=== PATIENT | female | born 1980 | race Caucasian/White ===

== ENCOUNTER 2016-06-15 18:03 | Inpatient (IN) | payer MEDICARE, MEDICAID ==
[~2016-06-15] VITALS: Ht 160 cm; Wt 50.9 kg
--- NOTE | ~2016-06-15 | ER ---
PATIENT'S NAME: ALHAJI CHAPMAN [facility] AGE: 35 Y [address] ROOM: [address] [place], [place] [address] LOCATION: GPCU ADMIT DATE: 06/15/2016 ER/Outpatient Report DISCHARGE DATE: FAMILY PHYSICIAN: PHYSICIAN, UNKNOWN ATTENDING PHYSICIAN: SHARON XIE A HISTORY OF PRESENT ILLNESS: This is a 35-year-old female, who presents today with chief complaint of seizure-like activity and periods of hypoxia. 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 According to her, she has had seizures since she was little when she "" of an asthma attack. The patient currently says that she hurts allover because her body is spasming. She says that some days she feels like she cannot breathe because when she has these seizures, she has paralysis of her diaphragm as well. She was seen in [place] for the same thing and he had put her on medications, which she said was working very well for her. These include very high doses of Dilaudid and lots of benzos as well. She was recently transferred to [facility] for suicidal gesture. She was EPC'd on a psychiatric basis only. I clarified this with Dr. Vega and the appropriate paper goods machine operator who had done it and this is only for psychiatric care and she had the right to refuse medical care. About an hour ago, according to this note, she began having these seizure-like activities that would last 10-15 seconds where she would desaturate as well to like 70% to 80%. She states that she would come out of it. She was conscious all the time and she would say that she is in pain and she needs her normal Dilaudid and all her benzos. She was seen by the hospitalist at [facility] 3 days ago for evaluation of her previous medical problems. Please see their note for further recommendations. She has chronic pain because of these seizing episodes. No other complaints at this time. She is very upset that they took her medications from her. She said that her doctor in [place] had settled and she said she was fine on these. EMS gave her Ativan 2 mg IV en route. PAST MEDICAL HISTORY: Asthma, history of pancreatitis, history of Adriano-Page syndrome. PAST SURGICAL HISTORY: Aortic coarctation repair at the age of 2, cholecystectomy, bilateral foot surgery. SOCIAL HISTORY: She is single and disabled. She does smoke marijuana as well. She also reports alcohol use. ALLERGIES: DEPAKOTE AND AMITIZA. PATIENT'S NAME: ALHAJI CHAPMAN [facility] AGE: 35 Y [address] ROOM: [facility] [place] [place] [address] LOCATION: GPCU ADMIT DATE: 06/15/2016 ER/Outpatient Report DISCHARGE DATE: FAMILY PHYSICIAN: PHYSICIAN, UNKNOWN ATTENDING PHYSICIAN: SHARON XIE CURRENT MEDICATIONS: Please see the medical record and the list. ROS: Reviewed by me are negative with the exception of those discussed in the HPI. PHYSICAL EXAMINATION: GENERAL: The patient is alert and oriented. She is able to speak to me when I can focus her. She does have some mild clonus episodes of her upper extremities and lower extremities. These do not result in any respiratory paralysis though. Every so often, the patient does have these episodes where she had gas and then she will desat to 86% to 87%. The lowest I saw was 76%. These lasts 10 seconds maximum and then her O2 comes right back up. She has one episode of vomiting as well for which she was suctioned and she was actually able to bring the vomiting bag to her mouth. She is otherwise alert and oriented x4, pretty cooperative, maintains good eye contact and pupils are equal and reactive to light. HEART: Her heart rate is at this time mildly tachycardic, about 102 beats per minute. LUNGS: Her lung sounds are clear. She has no labored breathing, tachypnea, or accessory muscle use. ABDOMEN: She has been thin, but soft, nontender, nondistended. No guarding or rebound. EXTREMITIES: She has no mottling or signs of trauma and otherwise appears well and nontoxic. NEURO: She has these myoclonus episodes where she is fully conscious and these episodes of gasping where she is sort of arches her back and desats to 70% to 80%. ER COURSE: An IV was established. The patient was given Ativan 2 mg by the EMS. We went over all of her records and discussed this with Dr. Vega, who had sent her over from [facility]. The story was that the nurses there do not feel they can handle this patient as she is having these repeated seizure-like episodes where she will desat and they cannot handle her medically here. Dr. Vega states though that she is EPC'd for psychiatric reasons and she does have the right to refuse medical treatment. The teleneurologist also saw this patient here. He was pretty convinced that this was pseudoseizures as the patient managed to have a full conversation with him without having any of these episodes and she was also managed to lay in CT scanner and was fully cooperative with that tests for the whole time, but then will start having these episodes when she is sort of left alone or told upsetting things, but he cannot rule out real seizures, so would recommend an ECG. However, we do not have EEG capability in [facility] over the weekend. So, I had arranged for her PATIENT'S NAME: ALHAJI CHAPMAN [facility] AGE: 35 Y [address] ROOM: [place] [address] [facility] AD[facility] DATE: 06/15/2016 ER/Outpatient Report DISCHARGE DATE: FAMILY PHYSICIAN: PHYSICIAN, UNKNOWN ATTENDING PHYSICIAN: SHARON XIE to be transported to [facility] where they do have EEG capability. The patient is refusing though and if she is not VISION SPECIALIST medically, she does have a right to refuse and she would need to consent for an EEG for them to actually do it. She is refusing. I discussed this with Dr. Garcia and he stated the patient is not EPC'd, she is not suicidal at this time and she needs workup for these sort of seizure-like activities that I also believe are pseudoseizures and would not show anything on EEG. The patient admitted in stable condition. I think a lot of it is due to her medications being taken away from her and she may need to have her medications reconciled. Admitted in guarded condition to [facility] under Dr. Garcia. IMPRESSION: Seizure-like activity. MD RIZWAN GARSIA/rea /[id number] d: 06/16/16 0425 t: 07/11/16 1821, OUTPATIENT REPORT
--- NOTE | ~2016-06-15 | HP ---
PATIENT'S NAME: ALHAJI CHAPMAN [facility] AGE: 35 Y [address] ROOM: [id number] [place], [place] [address] LOCATION: GPCU ADMIT DATE: 06/15/2016 History & Physical DISCHARGE DATE: FAMILY PHYSICIAN: PHYSICIAN, UNKNOWN ATTENDING PHYSICIAN: SHARON XIE DATE OF SERVICE: ATTENDING PHYSICIAN: Francisco Javier Segundo MD PRIMARY CARE PHYSICIAN: None. CHIEF COMPLAINT: Seizures. HISTORY OF PRESENT ILLNESS: This is a 35-year-old female, who first had a suicide attempt about a week ago. The patient was then brought from the [facility] to [facility] for further psychiatric management. After discussion with the Deputy Burgos, it is noted that the patient was not EPC'd but has a court committal at this point of time. She is awaiting a board hearing for her committal at this point of time. The patient was undergoing treatment for her suicide attempt under Dr. Vega's management. The patient was noted to have seizures, that were described as myoclonic seizures and also grand mal seizure today. She was then brought to the ER for further evaluation, management, and medical clearance. The patient was evaluated in the ER. The patient stated to the ER physician that she has a history of Adriano-Page syndrome and has myoclonic seizures from hypoxia for the past several years. She is on seizure medications including Keppra and benzodiazepines. The patient's seizure medications were being held because she was extremely drowsy at [facility] per reviewed records. The patient also has a history of chronic back pain and is on chronic opioid use. The patient was evaluated in the ER. A stat Neurology consult was obtained at that point of time. The neurologist recommended that the patient be transferred to [place] for an EEG, which cannot be accomplished at [facility] over the weekend. The patient refused treatment then to the ER physician and refused her transfer to [place]. The ER physician then contacted the hospitalist team for admission. She had already talked with Deputy Burgos and also Domonique Vicky at that point of time. Dr. Vega was contacted since the patient needed to go back to [facility], but she was refused admission at [facility] for no PATIENT'S NAME: ALHAJI CHAPMAN [facility] AGE: 35 Y [address] ROOM: [place] [address] LOCATION: GPCU ADMIT DATE: 06/15/2016 History & Physical DISCHARGE DATE: FAMILY PHYSICIAN: PHYSICIAN, UNKNOWN ATTENDING PHYSICIAN: SHARON XIE staff. Hospitalist team was then asked to admit the patient at [facility]. This is despite our inability to do an EEG currently. At the time of my examination on PCU, the patient is still having myoclonic seizures. She also had a grand mal seizure when I examined her on PCU. She was not postictal. During these episodes, the patient would hold her breath, and it seems like her saturations dropped to less than 90 on a couple of different occasions. She has received about 6 mg of total Ativan at this point of time. I have also consulted Neurology and discussed the case with them. The patient denies any headache. She complains of general body aches. She denies any abdominal pain, diarrhea, or constipation. Denies any chest pain or shortness of breath. Denies any other complaints at this point of time. REVIEW OF SYSTEMS: A 10-point review of systems was done and was otherwise negative except as mentioned above. HOME MEDICATIONS: Per MAR. PAST MEDICAL HISTORY: 1. Adriano-Page syndrome. 2. Chronic myoclonic movements. 3. History of asthma. 4. PTSD. 5. History of suicide attempt. 6. Depression. 7. Chronic opioid use. 8. Chronic back pain. 9. Conversion disorder per reviewed records with a history of pseudoseizures. 10. History of aortic coarctation. PAST SURGICAL HISTORY: 1. Cholecystectomy. 2. Bilateral foot surgery. 3. Aortic coarctation repair at age of 2 years per reviewed records. FAMILY HISTORY: Father has diabetes. Mother of heroin use at age 29. SOCIAL HISTORY: Reported history of illicit drug use and marijuana smoking per reviewed PATIENT'S NAME: ALHAJI CHAPMAN [facility] AGE: 35 Y [address] ROOM: [address] [place] [id number] LOCATION: GPCU ADMIT DATE: 06/15/2016 History & Physical DISCHARGE DATE: FAMILY PHYSICIAN: PHYSICIAN, UNKNOWN ATTENDING PHYSICIAN: KHALID,HERRERA A records. Occasional alcohol use per reviewed records. ALLERGIES: 1. DEPAKOTE AND ANIKA-DUR, UNKNOWN REACTION. 2. AMITIZA. PHYSICAL EXAMINATION: VITAL SIGNS: Temperature 98.0, pulse 84 and regular, respirations 16, blood pressure 111/58, saturation 99% on 2 L nasal cannula oxygen. GENERAL: The patient was initially having a seizure episode and was confused. She was, however, not confused postictally. She was alert and oriented x3 subsequently, in no acute distress. HEENT: Head: Normocephalic, atraumatic. Pupils are equal, round, reactive to light. Extraocular muscles are intact. Nares clear. Throat clear. Mucous membranes moist. NECK: Supple. No nuchal rigidity. HEART: Regular rate and rhythm. LUNGS: Clear to auscultation bilaterally. ABDOMEN: Soft, nontender, nondistended. Bowel sounds are present. EXTREMITIES: No clubbing, cyanosis, or edema. VASCULAR: Pulses 2+ distally bilaterally. NEUROLOGIC: The patient is alert and oriented x3. Follows all commands. Moves all extremities. Strength 5/5 bilateral upper and lower extremities. Cranial nerves 2 through 12 grossly intact. Sensation intact bilateral upper and lower extremities. No neurologic deficits noted. Deep tendon reflexes 2+/4. She had 2 episodes of seizures during my examination and received Ativan but currently does not show any twitches or seizure. DIAGNOSTIC DATA: ABG was done and showed a pH of 7.37, pCO2 of 41, pO2 of 138, bicarb 23.7, saturation 99% on 3 L nasal cannula oxygen. CBC showed a white count of 6.2, hemoglobin 14.9, hematocrit 43.1, platelets 252. CMP showed sodium 144, potassium 3.7, chloride 110, bicarb 22, BUN 11, creatinine 1.0, glucose 82, calcium 9.3. Total protein 8.2, albumin 3.9, AST 23, ALT 31, alkaline phosphatase 91, total bilirubin 0.3, magnesium 2.1, anion gap 15.7, globulin 4.1, GFR more than 60. Serum test less than 1.1, negative. Prolactin level 11.1. EEG is pending at this point of time, and it has been recommended by the neurologist, CT head was done and showed no acute intracranial abnormality per the ER physician. Official read is pending at this point of time. Chest x-ray showed no acute cardiopulmonary abnormality. ASSESSMENT AND PLAN: A 35-year-old female presenting with seizure activity. 1. History of suicide attempt. The patient will be placed in to one-to-one observation. I have discussed the case with Dr. Vega. The patient will PATIENT'S NAME: ALHAJI CHAPMAN [facility] AGE: 35 Y [address] [place] [facility] [place] [address] [facility] ADMIT DATE: 06/15/2016 History & Physical DISCHARGE DATE: FAMILY PHYSICIAN: PHYSICIAN, UNKNOWN ATTENDING PHYSICIAN: SHARON XIE be transferred back to [facility]. She was refused admission to [facility] today since there were some staffing issues. Further recommendations per Dr. Vega. 2. Seizures. The patient has been evaluated by teleneurology, and they have recommended that the patient be transferred to [place], but she refused transfer to [place]. At this point of time, I have contacted Deputy Burgos from the [place] [employer] at telephone number [phone]. I have discussed the case with Deputy Burgos. I am told that the patient was not EPC'd, but she has a court order for committal. Her hearing for this is currently pending at this point of time. Deputy Burgos also communicated with the imagery intelligence, Abbi Hollis and her number is [phone] regarding this. The patient was deemed to be at harm to herself, and then she was transferred to [facility]. The patient will need to be transferred to [facility]. She can not be discharged from the hospital. If she tries to leave [place], we will have to discuss the case with [facility] at that point of time. I have also discussed the case with the Teleneurology, Dr. Scott, and it was recommended that the patient be placed on Keppra and Ativan for seizures. If we have to do emergency airway protection, the patient will need to be intubated. We will monitor her very closely with neuro checks. I have discussed this with the patient, who is in agreement for the same plan. 3. History of Adriano-Page syndrome. Continue seizure medications for now. 4. Chronic pain. Continue opioids per home medication regimen. 5. Code status. Full code, discussed with the patient at the time of admission. 6. Deep vein thrombosis prophylaxis. SCD to legs. FRANCISCO JAVIER SEGUNDO MD MT/rea /[id number] D: [id number] T: [id number] HISTORY & PHYSICAL
--- NOTE | ~2016-06-15 | DS ---
PATIENT'S NAME: ALHAJI CHAPMAN [facility] AGE: 35 Y [address] ROOM: [address] [address] LOCATION: GPCU ADMIT DATE: 06/15/2016 Discharge Summary DISCHARGE DATE: FAMILY PHYSICIAN: Physician, Unknown ATTENDING PHYSICIAN: Jerome Perea PRINCIPAL DIAGNOSES: 1. Seizure. 2. Pseudoseizure. 3. Major depression. 4. Suicide attempt. HOSPITAL COURSE: This is a 35-year-old female, who was admitted to the hospital from [facility] for concerns of the patient having multiple breakthrough seizures. The patient appears to have had a history of seizure disorder in the past as well. The patient did have several seizure-like episodes during her hospital stay; however, the nature of seizure did appear to be psychogenic with pseudoseizure features and not quite seizure. The patient during her hospitalization also had been combative and difficult to manage . Teleneurology was consulted, and an EEG was attempted to be done; however, this was not possible during weekend. However, in the last 24 hours, the patient had been stable, but readjusted her medications especially, which the patient is adamant about being on, as well as resuming Keppra 500 mg b.i.d., which she had not been taking since April of this year. The patient had generally done very well in the last 24 hours, and is to continue taking her antiepileptic medication with Keppra 500 mg b.i.d. and continue taking her scheduled benzos and psych meds, and is currently medically stable to be transferred back to [facility]. PHYSICAL EXAMINATION: GENERAL: The patient , but awake, alert, and oriented x3. Mood is overall better. HEART: S1, S2. Regular rate and rhythm. CHEST: Clear to auscultation bilaterally. ABDOMEN: Soft, nontender, nondistended. EXTREMITIES: Without edema. NEURO: Nonfocal. DISPOSITION: Transferred back to [facility]. MEDICATIONS: Per MAY. Less than 30 minutes were spent in discharge planning and facilitating. PATIENT'S NAME: ALHAJI CHAPMAN [facility] AGE: 35 Y [address] [address] [place] [address] [facility] ADMIT DATE: 06/15/2016 Discharge Summary DISCHARGE DATE: FAMILY PHYSICIAN: Physician, Neftaly ATTENDING PHYSICIAN: Jerome Perea BARKOT MD AMIRA YEH/rea /[id number] d: 06/18/16 0439 t: 07/02/16 1418, DISCHARGE SUMMARY
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
[~2016-06-15 18:03] MED LIST changes: -ATIVAN 0.5MG0.5 MG PO; -ATIVAN2 MG IV; -ATIVAN2 MG PO; -BENGAY/ICY HOT/30 GM TOP; -CEPASTAT1 LOZ PO; -DULCOLAX STOOL100 MG PO; -DULERA 200 MCG/51 EA INH; -MILK OF MA400 MG/5 M PO; -MYLANTA (MAG-AL30 ML PO; -NAMENDA10 MG PO; -NEOSPORIN1 PKT TOP; -PEPCID20 MG PO; -SUDAFED30 MG PO; -THERA-VITE W/ B1 TAB PO; -TYLENOL325 MG PO
[2016-06-15 19:47] LABS: BASOPHIL % 0.6 %; EOSINOPHIL # 0.1 K/uL (0.0-0.5); EOSINOPHIL % 1.9 %; HEMATOCRIT 43.1 % (33.0-46.0); HEMOGLOBIN 14.9 g/dL (11.0-15.0); IMMATURE GRANULOCYTE % 0.2 %; LYMPHOCYTE # 1.9 K/uL (0.8-4.0); LYMPHOCYTE % 30.2 %; MCH 31.4 pg (27.0-34.0); MCHC 34.6 gm/dL (32.0-36.5); MCV 90.9 fl (83.0-98.0); MONOCYTE # 0.4 K/uL (0.0-1.0); MONOCYTE % 6.7 %; MPV 9.4 fl (9.4-12.4); NEUTROPHIL # (ANC) 3.8 K/uL (1.8-7.8); NEUTROPHIL % 60.4 %; NRBC % 0 /100WBC (0-0.00); PLATELET COUNT 252 K/uL (150-450); RBC 4.74 M/uL (3.50-5.50); RDW-CV 11.7 % (11.9-14.6); WBC 6.2 K/uL (4.0-11.0)
[2016-06-15 19:52] LABS: BICARBONATE 23.7 mmol/L (18.0-23.0); PCO2 41 mmHg (35-45); PO2 138 mmHg (80-90)
[2016-06-15 20:13] LABS: ALBUMIN 3.9 gm/dL (3.5-5.0); ALK PHOS 91 IU/L (33-138); ALT 31 IU/L (12-78); ANION GAP 15.7 (10.0-19.0); BLOOD UREA NITROGEN 11 mg/dL (6-24); CALCIUM 9.3 mg/dL (8.5-10.5); CHLORIDE 110 mMol/L (96-110); CO2 22 mMol/L (22-32); ESTIMATED GFR (MDRD EQUATION) > 60; POTASSIUM 3.7 mMol/L (3.7-5.1); SODIUM 144 mMol/L (135-145); TOTAL BILIRUBIN 0.3 mg/dL (0.0-1.5)
[2016-06-15 20:16] LABS: AST 23 IU/L (10-40)
[2016-06-16 00:16] LABS: BICARBONATE 23.7 mmol/L (18.0-23.0); PCO2 44 mmHg (35-45); PO2 152 mmHg (80-90)
--- NOTE | 2016-06-16 00:40 | NUR ---
Patient comes from [facility]. She was admitted there for suicide attempt. She was brought to our ER for seizure activity. In ER Neuro suggested for her to be transferred to [facility] but patient refused. The patient is EPS but can make her own medical decisions. To call police if she tries to leave. She will go back to [facility] in am. On arrival to room patient A/Ox3 but having seizure activity. MD aware. Lungs clear. Bowel sounds present. No IV patient took it out in ER. New IV to Lt AC. NS @ 70mls. IV Keppra 1000mg/ Ativan total 3.5mg given. Seizure last about 30-60sec she has a seizure about every 3-5mins.
[2016-06-16] MEDS ORDERED: TYLENOL325 MG PO (03:41)
[2016-06-16] MEDS ORDERED: MYLANTA (MAG-AL30 ML PO (03:42)
[2016-06-16] MEDS ORDERED: DULCOLAX STOOL100 MG PO (03:48)
[2016-06-16] MEDS ORDERED: PEPCID20 MG PO (03:50)
[2016-06-16] MEDS ORDERED: ATIVAN 0.5MG0.5 MG PO (04:00)
[2016-06-16] MEDS ORDERED: MILK OF MA400 MG/5 M PO (04:00)
[2016-06-16] MEDS ORDERED: NAMENDA10 MG PO (04:01)
[2016-06-16] MEDS ORDERED: BENGAY/ICY HOT/30 GM TOP (04:02)
[2016-06-16] MEDS ORDERED: SYMBICORT 16010.2 GM INH (04:03)
[2016-06-16] MEDS ORDERED: THERA-VITE W/ B1 TAB PO (04:04)
[2016-06-16] MEDS ORDERED: NEOSPORIN1 PKT TOP (04:05)
[2016-06-16] MEDS ORDERED: SUDAFED30 MG PO (04:07)
[2016-06-16] MEDS ORDERED: CEPASTAT1 LOZ PO (04:08)
--- NOTE | 2016-06-16 04:17 | NUR ---
Patient A/Ox3. Drowsy. VSS on RA. Hasn't had any seizure activity since around midnight. Lungs clear. Bowel sounds present. IV to Lt AC NS @70ml/hr. EKG in am. 1:1 sitter. Back to [facility] today.
[2016-06-16] MEDS ORDERED: DILAUDID 2MG(HYD2 MG PO (14:10)
--- NOTE | 2016-06-16 17:01 | NUR ---
Significant Event: patient has had twitching/seizure like episodes off and on since 614. a/o x 3. voice is soft. c/o chronic pain. c/o numbness/tingling to bilateral feet. IV to left forearm infusing normal saline at 70ml/hr. 2mg of ativan administered this shift. Home med recon addressed by hospitalist. regular diet. continues on bedrest and seizure precautions. 1:1 sitter. denies any suicidal plans or ideations. VSS. afebrile. Plan- transfer back to [facility] when stable.
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
--- NOTE | 2016-06-17 19:54 | NUR ---
Significant Event: A/O X 3 with no seizure like episodes until ambulating in hallway at 1330 with PROCESS CONTROLLER/1:1 sitter. whole body jerks/twitches and patients legs stiffen and she is unable to stand and is lowered to the ground. returned to room per w/c and to bed. at 1500 patient is ambulating in room with PROCESS CONTROLLER/1:1 sitter and whole body jerks/twitches and patient's legs stiffen and she is unable to stand and is lowered to the ground. patient denies sucidial plans/ ideations. does have 1:1 sitter and will return to [facility] when discharged. new orders for PT/OT. takes meds whole. regular diet. IV to left forearm with NS infusing at 70ml/hr. 2 assist with transfers and ambulation/ultra high fall risk Dr. Tobinheal present for unplanned decent at 1330 and updated per phone of unplanned decent at 1500.
--- NOTE | 2016-06-18 04:22 | NUR ---
Significant Event:Patient alert and ox3. Up with 2 assist/pivot. C/o generalized aching/discomfort from muscle twitching. Will follow commands. Wiggles fingers, but has weak grasp. Will sometimes wiggle toes, other times she states they are spasaming too much. Very stiff with movement. PIV infusing Ns to left forarem. Twitching and jerky movements noted when awake. None noted when sleeping. Repostions self in bed. Po ativan x2 for anxiousness and helping to relax. Dialudid po x1 for aching. Follow up:Possible d/c to [facility]
--- NOTE | 2016-06-18 13:40 | NUR ---
Reviewed chart, pt an [facility] and plan will be to go back to [facility] on discharge. Potential discharge today after therapy sees her. I called access center and talked with Cristin, she says they will accept 48 hours after last seizure activity, says didn't come yesterday due to seizure activity. 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 They did order PT/OT eval and increased Klonopin dose to see if that would help, will see how she does with PT this afternoon and if Dr Alves says can go back to [facility] will call Cristin back.
--- NOTE | 2016-06-18 16:39 | NUR ---
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 I called and left message for access nurse at [facility] to all me back as pt ready to come back to them today. No call back. Later got a call from [employer] that our warehouse associate driver talked with their warehouse associate driver and to call and arrange a time. I called [facility] and talked with warehouse associate driver MY and she said she talked with our warehouse associate driver and okay to send pt anytime, they will accept. Gave me nurse to nurse phone number [phone]. I called Dr Alves and he is going over to finalize orders and then can go. I called pt nurse Crystal JOHN and gave her number for nurse to nurse [phone] let her [address] Alves coming soon and to call D to transport at [phone] and ask them to come transport EPC back to [facility].
[2016-06-18] MEDS ORDERED: ATIVAN2 MG IV (18:05)
[2016-06-18] MEDS ORDERED: ATIVAN2 MG PO (18:06)
--- NOTE | 2016-06-18 20:10 | NUR ---
Significant Event: Patient A/Ox3. VS stable, on RA. Patient up in chair this shift with 2 assist pivot transfer. BM this shift. NO seizure activity observed this shift. Patient continues to have stiff legs but did ambulate with PT x2 this shift. Plan is to discharge patient back to [facility]. Transfer packet completed. Patient complains of pain this shift, dilaudid 2mg last given at 1630 with relief noted. Ativan x2 given this shift last at 1630 for anxiety. IV removed. Patient awaiting transportation. Cooperative with cares. Denies any suicidal/homicidal ideation this shift.
[2016-06-19] MEDS ORDERED: DULERA 200 MCG/51 EA INH (12:33)
== END 2016-06-18 20:38 | DRG 101 ==
LOC: GMED 18:03 → GPCU 19:03
PROVIDERS: Emergency Medicine; Family Medicine; ADMIT Internal Medicine
DX: G40.409 Other generalized epilepsy and epileptic syndromes, not intractable, without status epilepticus (principal); F32.9 Major depressive disorder, single episode, unspecified; G89.29 Other chronic pain; M54.9 Dorsalgia, unspecified; Z79.891 Long term (current) use of opiate analgesic; J45.909 Unspecified asthma, uncomplicated
CPT/HCPCS: J1630; J1953; J2060; J2405; J7030; J7040

== ENCOUNTER → 2016-06-15 | Outpatient (CLI) | payer MEDICARE, MEDICAID ==
[~2016-06-15] MED LIST: ALBUTEROL S2 MG/5 ML INH; AMITIZA24 MCG PO; ATIVAN 0.5MG0.5 MG PO; ATIVAN2 MG IV; ATIVAN2 MG PO; BENGAY/ICY HOT/30 GM TOP; CEPASTAT1 LOZ PO; DILAUDID 2MG(HYD2 MG PO; DILAUDID 4MG4 MG PO; DULCOLAX STOOL100 MG PO; DULERA 200 MCG/51 EA INH; KEPPRA500 MG PO; KLONOPIN1 MG PO; KLONOPIN2 MG PO; LAMICTAL25 MG PO; MILK OF MA400 MG/5 M PO; MIRALAX17 GM PO; MYLANTA (MAG-AL30 ML PO; NAMENDA10 MG PO; NEOSPORIN1 PKT TOP; PEPCID20 MG PO; PROAIR HFA8.5 GM INH; SINGULAIR10 MG PO; SUDAFED30 MG PO; SYMBICORT 16010.2 GM INH; THERA-VITE W/ B1 TAB PO; TOPAMAX100 MG PO; TYLENOL325 MG PO; VALIUM5 MG PO; WELLBUTRIN XL300 M1 PO
== END | disposition disaster alternative care site (69) ==
LOC: GAMB 17:24
DX: R56.9 Unspecified convulsions (principal); S61.512A Laceration without foreign body of left wrist, initial encounter; F60.89 Other specific personality disorders; J45.909 Unspecified asthma, uncomplicated; M79.1 Myalgia; Z79.891 Long term (current) use of opiate analgesic; Z79.899 Other long term (current) drug therapy; Z88.8 Allergy status to other drugs, medicaments and biological substances; X58.XXXA Exposure to other specified factors, initial encounter
CPT/HCPCS: A0422; A0425; A0427; J2060

== ENCOUNTER → 2016-06-18 | Outpatient (CLI) | payer MEDICARE, MEDICAID ==
[~2016-06-18] MED LIST changes: +ATIVAN 0.5MG0.5 MG PO; +ATIVAN2 MG IV; +ATIVAN2 MG PO; +BENGAY/ICY HOT/30 GM TOP; +CEPASTAT1 LOZ PO; +DULCOLAX STOOL100 MG PO; +DULERA 200 MCG/51 EA INH; +MILK OF MA400 MG/5 M PO; +MYLANTA (MAG-AL30 ML PO; +NAMENDA10 MG PO; +NEOSPORIN1 PKT TOP; +PEPCID20 MG PO; +SUDAFED30 MG PO; +THERA-VITE W/ B1 TAB PO; +TYLENOL325 MG PO
== END | disposition disaster alternative care site (69) ==
LOC: GAMB 20:35
DX: T14.91 Suicide attempt (principal)
CPT/HCPCS: A0425; A0428